=== PATIENT | male | born 1975 | race Two or more races ===

== ENCOUNTER 2020-03-26 17:30 | Emergency (ER) | payer OTHER ==
[~2020-03-26] VITALS: Ht 162.6 cm; Wt 128.8 kg
[~2020-03-26 17:30] MED LIST: ALLOPURINOL100 MG; BUDESONIDE0.5 MG/2 M IH; ENALAPRIL MALE2.5 MG; GEMFIBROZIL600 MG; GLUMETZA1000 MG; LEVAQUIN750 MG PO; NABUMETONE750 MG; OSEL75CA PO; TESSALON200 MG PO; TIROSINT13 MCG; XOPENEX0.63 MG/3 IH; ZITHROMAX500 MG PO
[2020-03-26] MEDS ORDERED: LIPITOR20 MG (18:09)
[2020-03-26] MEDS ORDERED: HYDROCHLOROTH12.5 MG (18:09)
[2020-03-26] MEDS ORDERED: WAL-DRYL25 M1 (18:10)
== END 2020-03-26 20:36 | disposition home or self-care (01) ==
LOC: ER 17:30
DX: L03.211 Cellulitis of face (principal)

== ENCOUNTER 2023-02-24 14:07 | Emergency (ER) | payer OTHER ==
[~2023-02-24] VITALS: Ht 162.6 cm; Wt 125.6 kg
[~2023-02-24 14:07] MED LIST changes: +HYDROCHLOROTH12.5 MG; +LIPITOR20 MG; +WAL-DRYL25 M1
== END 2023-02-24 18:52 | disposition home or self-care (01) ==
LOC: ER 14:07
DX: M62.838 Other muscle spasm (principal); W07.XXXA Fall from chair, initial encounter; Y93.89 Activity, other specified; Y92.018 Other place in single-family (private) house as the place of occurrence of the external cause